=== PATIENT | male | born 1980 | race Caucasian/White ===

== ENCOUNTER 2020-03-15 15:53 | Inpatient (IN) | payer OTHER ==
[~2020-03-15] VITALS: Ht 165.1 cm; Wt 143.1 kg
[2020-03-15 16:29] LABS: BASOPHILS % (AUTO) 0.3 % (0.0-5.0); EOSINOPHILS % (AUTO) 0.8 % (0.0-8.0); HEMATOCRIT 40.3 % (42-54); LYMPHOCYTES % (AUTO) 13.5 % (21.0-51.0); MEAN CORPUSCULAR VOLUME 86.3 fL (79-99); NEUTROPHILS % (AUTO) 79.9 % (40.0-77.0); PLATELET COUNT (AUTO) 235 K/uL (130-400); RED BLOOD CELL COUNT(AUTO) 4.67 MIL/uL (4.50-6.20); RED CELL DISTRIBUTION WIDTH 12.9 % (11.0-15.5); WHITE BLOOD COUNT (AUTO) 11.9 K/uL (4.8-10.8)
[2020-03-15] MEDS ORDERED: ONDANSETRON HCL 4 MG/2 ML VIAL ONE ×2 (16:33→21:46)
[2020-03-15] MEDS ORDERED: MORPHINE SULFATE 4 MG/1ML SYG ONE ×2 (16:33→21:46)
[2020-03-15 16:51] LABS: MEAN CORPUSCULAR HEMOGLOBIN 30.8 pg (27.0-33.0); MEAN CORPUSCULAR HGB CONC 35.7 g/dL (32.0-36.0)
[2020-03-15 16:58] LABS: POTASSIUM 4.6 mmol/L (3.5-5.1)
[2020-03-15] MEDS ORDERED: MORPHINE SULFATE 2 MG/ML 1ML SYG ONE (17:28)
[2020-03-15] MEDS ORDERED: INSULIN HUMULIN R 100 UNIT/ML 3ML ONE ×2 (17:32→18:39)
[2020-03-15] MEDS ORDERED: SODIUM CHLORIDE 0.9% 1000ML 1,000 ML IV ONE (17:33)
[2020-03-15 17:37] LABS: APPEARANCE,URINE Clear (CLEAR); BILIRUBIN,URINE Negative (NEGATIVE); COLOR,URINE Yellow (YELLOW); GLUCOSE, URINE (UA) >=1000 mg/dL (NEGATIVE); KETONES,URINE 15 mg/dL (NEGATIVE); LEUKOCYTE ESTERASE ,URINE Negative (NEGATIVE); NITRATE,URINE Negative (NEGATIVE); OCCULT BLOOD,URINE Negative (NEGATIVE); PROTEIN,URINE 300 mg/dL (NEGATIVE)
[2020-03-15 17:48] LABS: RBC,URINE 0-1 /HPF (0-1); WBC,URINE 0-1 /HPF (0-1)
[2020-03-15 17:49] LABS: BACTERIA,URINE Rare /HPF (None Seen); MUCUS,URINE Rare LPF (None Seen); SQUAMOUS EPITHELIAL CELL,UR Rare /HPF (0-2)
[2020-03-15 18:05] LABS: ALBUMIN 3.8 g/dL (3.5-5.0); BILIRUBIN,TOTAL 0.2 mg/dL (0.2-1.0); TOTAL PROTEIN, SERUM 6.4 g/dL (6.0-8.3)
[2020-03-15] MEDS ORDERED: HYDROMORPHONE 1 MG/1 ML AMP ONE (18:27)
[2020-03-15] MEDS ORDERED: SODIUM CHLORIDE 0.9% 100 ML IV ONE (18:37)
[2020-03-15] MEDS ORDERED: SODIUM CHLORIDE 0.9% 1000ML 1,000 ML IV SCH (19:06)
[2020-03-15] MEDS ORDERED: MAG HYDROX/AL HYDROX/SIMETH 30 ML, LIDOCAINE HCL 2% VISCOUS 30 ML, DIPHENHYDRAMINE HCL ... PO PRN ×3 (19:15)
[2020-03-15] MEDS ORDERED: LACTULOSE 20 GM/30 ML UDCUP PO PRN (19:15)
[2020-03-15] MEDS ORDERED: HYDRALAZINE HCL 20 MG/ML VIAL IV PRN (19:15)
[2020-03-15] MEDS ORDERED: MORPHINE SULFATE 2 MG/ML 1ML SYG IV PRN (19:15)
[2020-03-15] MEDS ORDERED: MORPHINE SULFATE 4 MG/1ML SYG IV PRN (19:15)
[2020-03-15] MEDS ORDERED: GUAIFENESIN-DM 200/20 MG 10 ML PO PRN (19:15)
[2020-03-15] MEDS ORDERED: ACETAMINOPHEN 325 MG TAB PO PRN ×2 (19:15)
[2020-03-15] MEDS ORDERED: DIPHENHYDRAMINE HCL 25 MG CAPSULE PO PRN (19:15)
[2020-03-15] MEDS ORDERED: DiphenhydrAMINE HCL 50 MG/ML VIAL IV PRN (19:15)
[2020-03-15] MEDS ORDERED: ZOLPIDEM TARTRATE 5 MG TAB PO PRN (19:15)
[2020-03-15] MEDS ORDERED: LIDOCAINE HCL 2% VISCOUS 30 ML, MAG HYDROX/AL HYDROX/SIMETH 30 ML, BELLADONNA-PHENOBARB... PO PRN ×3 (19:15)
[2020-03-15] MEDS ORDERED: NITROGLYCERIN 0.4 MG SL TAB SL PRN (19:15)
[2020-03-15] MEDS ORDERED: MAG HYDROX/AL HYDROX/SIMETH ES 30 ML SUSP UDCUP PO PRN (19:15)
[2020-03-15] MEDS ORDERED: BENZONATATE 100 MG CAPSULE PO PRN (19:15)
[2020-03-15] MEDS ORDERED: INSULIN REGULAR, HUMAN 3ML 100 UNIT in SODIUM CHLORIDE 0.9% 99 ML IV PRN ×2 (19:45)
[2020-03-15] MEDS: DEXTROSE 5 %-0.45 % NACL 1,000 ML IV SCH (20:45)
[2020-03-15] MEDS: ATORVASTATIN CALCIUM 40 MG TABLET PO SCH (21:00)
[2020-03-15] MEDS: FAMOTIDINE/PF 20 MG/2 ML VIAL IV SCH (21:00)
[2020-03-15] MEDS ORDERED: FAMOTIDINE/PF 20 MG/2 ML VIAL IV SCH (21:00)
[2020-03-15] MEDS: FENOFIBRATE NANOCRYSTALLIZED 48 MG TAB PO SCH (21:00)
[2020-03-15] MEDS ORDERED: FAMOTIDINE/PF 20 MG/2 ML VIAL IV ONE (23:07)
[2020-03-16] VITALS (13 sets, daily range): BP systolic 125–160; BP diastolic 82–93
[2020-03-16] MEDS: DEXTROSE 5 %-0.45 % NACL 1,000 ML IV SCH ×4 (01:45→22:00)
[2020-03-16] MEDS ORDERED: MORPHINE SULFATE 4 MG/1ML SYG ONE ×2 (01:52→05:52)
[2020-03-16] MEDS ORDERED: ONDANSETRON HCL 4 MG/2 ML VIAL ONE (05:06)
[2020-03-16 05:15] LABS: BASOPHILS % (AUTO) 0.2 % (0.0-5.0); HEMATOCRIT 38.5 % (42-54); LYMPHOCYTES % (AUTO) 7.5 % (21.0-51.0); MEAN CORPUSCULAR HEMOGLOBIN 32.4 pg (27.0-33.0); MEAN CORPUSCULAR HGB CONC 37.7 g/dL (32.0-36.0); MEAN CORPUSCULAR VOLUME 86.1 fL (79-99); MONOCYTES % (AUTO) 4.2 % (3.0-13.0); NEUTROPHILS % (AUTO) 87.5 % (40.0-77.0); PLATELET COUNT (AUTO) 264 K/uL (130-400); RED BLOOD CELL COUNT(AUTO) 4.47 MIL/uL (4.50-6.20); RED CELL DISTRIBUTION WIDTH 13.7 % (11.0-15.5); WHITE BLOOD COUNT (AUTO) 10.3 K/uL (4.8-10.8)
[2020-03-16 05:39] LABS: BILIRUBIN,TOTAL 0.7 mg/dL (0.2-1.0); CREATININE 0.7 mg/dL (0.5-1.5); MAGNESIUM 1.1 mg/dL (1.80-2.40); POTASSIUM 5.5 mmol/L (3.5-5.1)
[2020-03-16 06:23] LABS: TOTAL PROTEIN, SERUM 6.6 g/dL (6.0-8.3)
[2020-03-16] MEDS ORDERED: FAMOTIDINE/PF 20 MG/2 ML VIAL IV ONE (08:14)
[2020-03-16] MEDS ORDERED: ENOXAPARIN SODIUM 40 MG/0.4 ML SYRINGE SQ ONE (08:14)
[2020-03-16] MEDS: FAMOTIDINE/PF 20 MG/2 ML VIAL IV SCH ×2 (09:00→21:16)
[2020-03-16] MEDS: ENOXAPARIN SODIUM 40 MG/0.4 ML SYRINGE SQ SCH (09:00)
[2020-03-16] MEDS ORDERED: MAGNESIUM 2GM PREMIX 50ML 50 ML IV ONE ×2 (09:32→11:26)
[2020-03-16] MEDS ORDERED: MAGNESIUM 2GM PREMIX 50ML 50 ML IV SCH (10:07)
[2020-03-16] MEDS ORDERED: SODIUM CHLORIDE 0.9% 100 ML IV ONE (10:53)
[2020-03-16] MEDS ORDERED: INSULIN HUMULIN R 100 UNIT/ML 3ML ONE (10:56)
[2020-03-16] MEDS ORDERED: DEXTROSE 5 %-0.45 % NACL 1,000 ML IV ONE (12:14)
[2020-03-16] MEDS: HYDROMORPHONE HCL 0.5 MG/0.5 ML ML IVP PRN ×3 (12:44→23:00)
[2020-03-16] MEDS: ONDANSETRON HCL 4 MG/2 ML VIAL IV PRN ×2 (12:44→18:44)
[2020-03-16 13:43] LABS: CREATININE 0.9 mg/dL (0.5-1.5); MAGNESIUM 2.3 mg/dL (1.80-2.40); POTASSIUM 3.5 mmol/L (3.5-5.1)
[2020-03-16] MEDS ORDERED: POTASSIUM CHLORIDE 20MEQ/100ML 100 ML IV PRN (14:30)
[2020-03-16] MEDS ORDERED: LACTATED RINGERS 1000ML 1,000 ML IV ONE (15:00)
[2020-03-16] MEDS: LACTATED RINGERS 1000ML 1,000 ML IV SCH ×2 (15:00→21:23)
[2020-03-16 20:34] LABS: CREATININE 0.9 mg/dL (0.5-1.5); POTASSIUM 3.6 mmol/L (3.5-5.1)
[2020-03-16] MEDS: ATORVASTATIN CALCIUM 40 MG TABLET PO SCH (21:16)
[2020-03-16] MEDS: FENOFIBRATE NANOCRYSTALLIZED 48 MG TAB PO SCH (21:16)
[2020-03-16] MEDS: LIDOCAINE HCL-MPF 1% 2ML VIAL IJ PRN ×2 (23:01→23:39)
[2020-03-17] VITALS (22 sets, daily range): BP systolic 105–163; BP diastolic 68–94
[2020-03-17] MEDS: LACTATED RINGERS 1000ML 1,000 ML IV SCH ×3 (04:09→12:02)
[2020-03-17 06:40] LABS: BASOPHILS % (AUTO) 0.2 % (0.0-5.0); EOSINOPHILS % (AUTO) 1.4 % (0.0-8.0); LYMPHOCYTES % (AUTO) 10.7 % (21.0-51.0); MEAN CORPUSCULAR HEMOGLOBIN 30.1 pg (27.0-33.0); MEAN CORPUSCULAR HGB CONC 34.5 g/dL (32.0-36.0); MEAN CORPUSCULAR VOLUME 87.4 fL (79-99); MONOCYTES % (AUTO) 4.5 % (3.0-13.0); NEUTROPHILS % (AUTO) 82.8 % (40.0-77.0); PLATELET COUNT (AUTO) 183 K/uL (130-400); RED BLOOD CELL COUNT(AUTO) 4.35 MIL/uL (4.50-6.20); RED CELL DISTRIBUTION WIDTH 13.6 % (11.0-15.5); WHITE BLOOD COUNT (AUTO) 8.1 K/uL (4.8-10.8)
[2020-03-17 07:01] LABS: ALBUMIN 2.6 g/dL (3.5-5.0); BILIRUBIN,TOTAL 0.6 mg/dL (0.2-1.0); CREATININE 0.9 mg/dL (0.5-1.5); POTASSIUM 3.6 mmol/L (3.5-5.1); TOTAL PROTEIN, SERUM 6.9 g/dL (6.0-8.3)
[2020-03-17] MEDS: DEXTROSE 5 %-0.45 % NACL 1,000 ML IV SCH ×2 (08:12→17:26)
[2020-03-17] MEDS: ENOXAPARIN SODIUM 40 MG/0.4 ML SYRINGE SQ SCH (08:57)
[2020-03-17] MEDS: FAMOTIDINE/PF 20 MG/2 ML VIAL IV SCH ×2 (08:57→20:08)
[2020-03-17] MEDS: FISH OIL 1000 MG/CAP PO SCH ×3 (10:32→20:07)
[2020-03-17 18:40] LABS: POTASSIUM 3.6 mmol/L (3.5-5.1)
[2020-03-17] MEDS: ATORVASTATIN CALCIUM 40 MG TABLET PO SCH (20:07)
[2020-03-17] MEDS: FENOFIBRATE NANOCRYSTALLIZED 48 MG TAB PO SCH (20:37)
[2020-03-18] VITALS (10 sets, daily range): BP systolic 120–160; BP diastolic 65–93
[2020-03-18] MEDS: LACTATED RINGERS 1000ML 1,000 ML IV SCH (00:20)
[2020-03-18] MEDS: DEXTROSE 5 %-0.45 % NACL 1,000 ML IV SCH (00:21)
[2020-03-18] MEDS ORDERED: KETOROLAC TROMETHAMINE 15MG/ML ONE (01:36)
[2020-03-18] MEDS: KETOROLAC TROMETHAMINE 15MG/ML IV SCH ×2 (01:46→13:05)
[2020-03-18 04:40] LABS: BASOPHILS % (AUTO) 0.3 % (0.0-5.0); EOSINOPHILS % (AUTO) 2.9 % (0.0-8.0); HEMATOCRIT 35.9 % (42-54); MEAN CORPUSCULAR HEMOGLOBIN 29.8 pg (27.0-33.0); MEAN CORPUSCULAR HGB CONC 33.7 g/dL (32.0-36.0); MEAN CORPUSCULAR VOLUME 88.4 fL (79-99); MONOCYTES % (AUTO) 3.9 % (3.0-13.0); NEUTROPHILS % (AUTO) 76.6 % (40.0-77.0); PLATELET COUNT (AUTO) 186 K/uL (130-400); RED BLOOD CELL COUNT(AUTO) 4.06 MIL/uL (4.50-6.20); RED CELL DISTRIBUTION WIDTH 13.4 % (11.0-15.5); WHITE BLOOD COUNT (AUTO) 7.6 K/uL (4.8-10.8)
[2020-03-18 04:54] LABS: ALBUMIN 2.4 g/dL (3.5-5.0); BILIRUBIN,TOTAL 0.5 mg/dL (0.2-1.0); CREATININE 0.8 mg/dL (0.5-1.5); MAGNESIUM 2.6 mg/dL (1.80-2.40); PHOSPHORUS 1.7 mg/dL (2.5-4.9); POTASSIUM 3.4 mmol/L (3.5-5.1); TOTAL PROTEIN, SERUM 6.8 g/dL (6.0-8.3)
--- NOTE | 2020-03-18 08:32 | NUR ---
Notified warehouse hand of downgrade transfer to med/surg status; report called to Tanisha @ 0815, wheeled patient myself to room 314, vss. belongings w/patient, cbg 193 md/dl; new orders noted & voiced to Tanisha to administer.
[2020-03-18] MEDS: FISH OIL 1000 MG/CAP PO SCH ×3 (09:10→20:21)
[2020-03-18] MEDS: POTASSIUM CHLORIDE 20 MEQ ERTAB PO SCH (09:11)
[2020-03-18] MEDS: FAMOTIDINE/PF 20 MG/2 ML VIAL IV SCH ×2 (09:11→20:21)
[2020-03-18] MEDS: ENOXAPARIN SODIUM 40 MG/0.4 ML SYRINGE SQ SCH (09:12)
[2020-03-18] MEDS: INSULIN HUMULIN R 100 UNIT/ML 3ML SQ SCH ×8 (09:23→21:00)
--- NOTE | 2020-03-18 10:04 | NUR ---
DC PLAN PATIENT LIVES WITH SPOUSE. INDEPENDENT ABLE TO PERFORM ADL'S. PATIENT HAS NO SERVICES OR DME. FEELS SAFE TO RETURN HOME. Addendum: 03/18/20 at 1007 by APRIL JESSICA RN CM Amended: Links added.
[2020-03-18] MEDS ORDERED: POLYETHYLENE GLYCOL 3350 17 GM POWD.PACK ONE (12:51)
[2020-03-18] MEDS: INSULIN GLARGINE 100 UNITS/ML 10 ML VIAL SQ SCH (13:14)
[2020-03-18] MEDS: ATORVASTATIN CALCIUM 40 MG TABLET PO SCH (20:21)
[2020-03-18] MEDS: KETOROLAC TROMETHAMINE 15MG/ML IV PRN (20:22)
[2020-03-18] MEDS: FENOFIBRATE NANOCRYSTALLIZED 48 MG TAB PO SCH (20:22)
[2020-03-18] MEDS ORDERED: INSULIN GLARGINE 100 UNITS/ML 10 ML VIAL SQ SCH (21:00)
[2020-03-19] VITALS: BP 130/64
[2020-03-19] MEDS: KETOROLAC TROMETHAMINE 15MG/ML IV PRN ×3 (02:33→21:41)
[2020-03-19 04:00] VITALS: BP 148/78
[2020-03-19] MEDS: INSULIN HUMULIN R 100 UNIT/ML 3ML SQ SCH ×7 (05:54→22:27)
[2020-03-19] MEDS: POTASSIUM CHLORIDE 20 MEQ ERTAB PO SCH (06:56)
[2020-03-19 07:30] VITALS: BP 144/63
[2020-03-19] MEDS: FAMOTIDINE/PF 20 MG/2 ML VIAL IV SCH (08:47)
[2020-03-19] MEDS: FISH OIL 1000 MG/CAP PO SCH ×3 (08:47→21:00)
[2020-03-19] MEDS: POLYETHYLENE GLYCOL 3350 17 GM POWD.PACK PO SCH (08:48)
[2020-03-19] MEDS: ENOXAPARIN SODIUM 40 MG/0.4 ML SYRINGE SQ SCH (08:51)
[2020-03-19] MEDS ORDERED: INSULIN GLARGINE 100 UNITS/ML 10 ML VIAL SQ SCH (09:00)
[2020-03-19 09:44] LABS: ALBUMIN 2.6 g/dL (3.5-5.0); BILIRUBIN,TOTAL 0.6 mg/dL (0.2-1.0); CREATININE 0.9 mg/dL (0.5-1.5); TOTAL PROTEIN, SERUM 7.3 g/dL (6.0-8.3)
[2020-03-19 12:00] VITALS: BP 136/87
[2020-03-19] MEDS: INSULIN GLARGINE 100 UNITS/ML 10 ML VIAL SQ SCH (12:27)
[2020-03-19] MEDS ORDERED: TRAMADOL HCL 50 MG TABLET PO ONE (14:45)
[2020-03-19] MEDS ORDERED: LISINOPRIL 10 MG TABLET PO SCH (14:45)
[2020-03-19] MEDS ORDERED: PANTOPRAZOLE SODIUM 40 MG TABLET.DR PO SCH (14:45)
[2020-03-19] MEDS: TRAMADOL HCL 50 MG TABLET PO SCH ×2 (14:45→20:45)
[2020-03-19 16:00] VITALS: BP 152/75
[2020-03-19 20:24] VITALS: BP 166/79
[2020-03-19] MEDS: ATORVASTATIN CALCIUM 40 MG TABLET PO SCH (21:00)
[2020-03-19] MEDS: DOCUSATE SODIUM 100 MG CAP PO SCH (21:00)
[2020-03-19] MEDS: FENOFIBRATE NANOCRYSTALLIZED 48 MG TAB PO SCH (21:00)
[2020-03-19] MEDS ORDERED: MORPHINE SULFATE 2 MG/ML 1ML SYG ONE (22:00)
[2020-03-19] MEDS ORDERED: MORPHINE SULFATE 2 MG/ML 1ML SYG IVP ONE (22:00)
[2020-03-20] VITALS (7 sets, daily range): BP systolic 130–165; BP diastolic 61–86
[2020-03-20] MEDS: TRAMADOL HCL 50 MG TABLET PO SCH ×4 (02:45→21:04)
[2020-03-20] MEDS: KETOROLAC TROMETHAMINE 15MG/ML IV PRN (03:46)
[2020-03-20 04:13] LABS: BASOPHILS % (AUTO) 0.1 % (0.0-5.0); EOSINOPHILS % (AUTO) 2.3 % (0.0-8.0); LYMPHOCYTES % (AUTO) 10.8 % (21.0-51.0); MEAN CORPUSCULAR HEMOGLOBIN 29.2 pg (27.0-33.0); MEAN CORPUSCULAR HGB CONC 32.9 g/dL (32.0-36.0); MEAN CORPUSCULAR VOLUME 88.8 fL (79-99); MONOCYTES % (AUTO) 7.2 % (3.0-13.0); NEUTROPHILS % (AUTO) 79.3 % (40.0-77.0); PLATELET COUNT (AUTO) 162 K/uL (130-400); RED BLOOD CELL COUNT(AUTO) 3.83 MIL/uL (4.50-6.20); RED CELL DISTRIBUTION WIDTH 13.3 % (11.0-15.5); WHITE BLOOD COUNT (AUTO) 7.2 K/uL (4.8-10.8)
[2020-03-20 04:36] LABS: ALBUMIN 2.5 g/dL (3.5-5.0); BILIRUBIN,TOTAL 0.8 mg/dL (0.2-1.0); POTASSIUM 3.6 mmol/L (3.5-5.1)
[2020-03-20] MEDS: INSULIN HUMULIN R 100 UNIT/ML 3ML SQ SCH ×7 (06:02→21:00)
--- NOTE | 2020-03-20 06:04 | NUR ---
nursing note PT REPORTS THAT ABD PAIN HAS REMAINED THROUGHOUT THE NIGHT, PROXIMAL TO UMBILICUS. PT REPORTS THE AREA IS TENDER TO TOUCH. PT STATES THAT HE WAS ABLE TO HAVE X3 BM AND ABLE TO PASS GAS WHICH HELPED WITH THE ABD DISTENSION. PT CONCERNED WITH PERSISTENT ABD PAIN. PAIN COVERED THROUGH OUT THE NIGHT WITH IV PAIN MED PER AUG. PT AMBULATED AROUND UNIT TO ATTEMPT TO ALLEVIATE THE PAIN WELL. NO OTHER EVENTS OCCURED DURING THIS SHIFT.
[2020-03-20] MEDS: POTASSIUM CHLORIDE 20 MEQ ERTAB PO SCH (08:00)
[2020-03-20] MEDS: FISH OIL 1000 MG/CAP PO SCH ×3 (08:46→21:03)
[2020-03-20] MEDS: DOCUSATE SODIUM 100 MG CAP PO SCH ×2 (08:46→21:03)
[2020-03-20] MEDS: PANTOPRAZOLE SODIUM 40 MG TABLET.DR PO SCH (08:47)
[2020-03-20] MEDS: POLYETHYLENE GLYCOL 3350 17 GM POWD.PACK PO SCH (08:47)
[2020-03-20] MEDS: ENOXAPARIN SODIUM 40 MG/0.4 ML SYRINGE SQ SCH (08:53)
[2020-03-20] MEDS ORDERED: INSULIN GLARGINE 100 UNITS/ML 10 ML VIAL SQ SCH (09:00)
[2020-03-20] MEDS: SIMETHICONE 80 MG TAB.CHEW PO SCH ×2 (17:29→21:05)
[2020-03-20] MEDS: ATORVASTATIN CALCIUM 40 MG TABLET PO SCH (21:03)
[2020-03-20] MEDS: FENOFIBRATE NANOCRYSTALLIZED 145 MG TAB PO SCH (21:06)
[2020-03-21 03:42] VITALS: BP 152/73
[2020-03-21] MEDS: TRAMADOL HCL 50 MG TABLET PO SCH ×4 (04:33→21:07)
[2020-03-21 05:58] LABS: BASOPHILS % (AUTO) 0.3 % (0.0-5.0); EOSINOPHILS % (AUTO) 2.3 % (0.0-8.0); HEMATOCRIT 33.3 % (42-54); MEAN CORPUSCULAR HEMOGLOBIN 29.1 pg (27.0-33.0); MEAN CORPUSCULAR HGB CONC 32.7 g/dL (32.0-36.0); MEAN CORPUSCULAR VOLUME 88.8 fL (79-99); MONOCYTES % (AUTO) 8.2 % (3.0-13.0); NEUTROPHILS % (AUTO) 75.4 % (40.0-77.0); PLATELET COUNT (AUTO) 166 K/uL (130-400); RED BLOOD CELL COUNT(AUTO) 3.75 MIL/uL (4.50-6.20); RED CELL DISTRIBUTION WIDTH 13.2 % (11.0-15.5); WHITE BLOOD COUNT (AUTO) 7.7 K/uL (4.8-10.8)
[2020-03-21 06:13] LABS: ALBUMIN 2.4 g/dL (3.5-5.0); BILIRUBIN,TOTAL 0.6 mg/dL (0.2-1.0); CREATININE 0.8 mg/dL (0.5-1.5); POTASSIUM 3.5 mmol/L (3.5-5.1); TOTAL PROTEIN, SERUM 6.8 g/dL (6.0-8.3)
[2020-03-21] MEDS: INSULIN HUMULIN R 100 UNIT/ML 3ML SQ SCH ×7 (07:16→21:00)
[2020-03-21 07:46] VITALS: BP 139/61
[2020-03-21] MEDS: POTASSIUM CHLORIDE 20 MEQ ERTAB PO SCH (08:00)
[2020-03-21] MEDS: SIMETHICONE 80 MG TAB.CHEW PO SCH ×3 (08:08→17:22)
[2020-03-21] MEDS: FISH OIL 1000 MG/CAP PO SCH ×3 (08:08→21:06)
[2020-03-21] MEDS: PANTOPRAZOLE SODIUM 40 MG TABLET.DR PO SCH (08:08)
[2020-03-21] MEDS: DOCUSATE SODIUM 100 MG CAP PO SCH ×2 (08:08→21:06)
[2020-03-21] MEDS: ENOXAPARIN SODIUM 40 MG/0.4 ML SYRINGE SQ SCH (08:11)
[2020-03-21] MEDS: POLYETHYLENE GLYCOL 3350 17 GM POWD.PACK PO SCH (08:11)
[2020-03-21] MEDS ORDERED: INSULIN GLARGINE 100 UNITS/ML 10 ML VIAL SQ SCH ×2 (09:00)
[2020-03-21 12:00] VITALS: BP 140/72
[2020-03-21 16:00] VITALS: BP 136/76
[2020-03-21] MEDS ORDERED: ATOR40TA69 PO (17:11)
[2020-03-21] MEDS ORDERED: DOCU-275 PO (17:11)
[2020-03-21] MEDS ORDERED: FENO145T PO (17:11)
[2020-03-21] MEDS ORDERED: FISH1CAP20 PO (17:11)
[2020-03-21] MEDS ORDERED: INSU100V3 SQ (17:11)
[2020-03-21] MEDS ORDERED: INSLAN SQ (17:11)
[2020-03-21 20:18] VITALS: BP 161/87
[2020-03-21] MEDS: ATORVASTATIN CALCIUM 40 MG TABLET PO SCH (21:06)
[2020-03-21] MEDS: FENOFIBRATE NANOCRYSTALLIZED 145 MG TAB PO SCH (21:06)
[2020-03-21] MEDS: SIMETHICONE 80 MG TAB.CHEW PO PRN (21:08)
[2020-03-21 23:41] VITALS: BP 160/78
[2020-03-22] MEDS: TRAMADOL HCL 50 MG TABLET PO SCH ×3 (02:45→14:35)
[2020-03-22 03:48] VITALS: BP 162/91
[2020-03-22 04:56] LABS: BASOPHILS % (AUTO) 0.3 % (0.0-5.0); EOSINOPHILS % (AUTO) 2.3 % (0.0-8.0); HEMATOCRIT 33.3 % (42-54); LYMPHOCYTES % (AUTO) 18.9 % (21.0-51.0); MEAN CORPUSCULAR HEMOGLOBIN 29.2 pg (27.0-33.0); MEAN CORPUSCULAR HGB CONC 32.7 g/dL (32.0-36.0); MEAN CORPUSCULAR VOLUME 89.3 fL (79-99); MONOCYTES % (AUTO) 9.5 % (3.0-13.0); NEUTROPHILS % (AUTO) 66.7 % (40.0-77.0); PLATELET COUNT (AUTO) 166 K/uL (130-400); RED BLOOD CELL COUNT(AUTO) 3.73 MIL/uL (4.50-6.20); RED CELL DISTRIBUTION WIDTH 13.2 % (11.0-15.5); WHITE BLOOD COUNT (AUTO) 7.6 K/uL (4.8-10.8)
[2020-03-22 05:11] LABS: ALBUMIN 2.5 g/dL (3.5-5.0); BILIRUBIN,TOTAL 0.4 mg/dL (0.2-1.0); CREATININE 0.9 mg/dL (0.5-1.5); POTASSIUM 3.6 mmol/L (3.5-5.1); TOTAL PROTEIN, SERUM 7.2 g/dL (6.0-8.3)
[2020-03-22] MEDS: INSULIN HUMULIN R 100 UNIT/ML 3ML SQ SCH ×2 (06:03→11:30)
[2020-03-22 08:00] VITALS: BP 165/55
[2020-03-22] MEDS: POTASSIUM CHLORIDE 20 MEQ ERTAB PO SCH (08:00)
[2020-03-22] MEDS: POLYETHYLENE GLYCOL 3350 17 GM POWD.PACK PO SCH (09:00)
[2020-03-22] MEDS: DOCUSATE SODIUM 100 MG CAP PO SCH (09:00)
[2020-03-22] MEDS ORDERED: INSULIN GLARGINE 100 UNITS/ML 10 ML VIAL SQ SCH (09:00)
[2020-03-22] MEDS: PANTOPRAZOLE SODIUM 40 MG TABLET.DR PO SCH (09:48)
[2020-03-22] MEDS: FISH OIL 1000 MG/CAP PO SCH ×2 (09:48→14:10)
[2020-03-22] MEDS: ENOXAPARIN SODIUM 40 MG/0.4 ML SYRINGE SQ SCH (09:49)
[2020-03-22] MEDS: SIMETHICONE 80 MG TAB.CHEW PO PRN (10:09)
[2020-03-22] MEDS ORDERED: INSULIN HUMULIN R 100 UNIT/ML 3ML SQ SCH (11:30)
[2020-03-22 11:57] VITALS: BP 149/70
[2020-03-22] MEDS ORDERED: LISI10TA7 PO (15:37)
== END 2020-03-22 16:10 | disposition home or self-care (01) | DRG 438 ==
LOC: EDH 15:53 → EDHIP 19:06 → DAHIP 03-16 12:21 → 3CH 03-18 07:59
PROVIDERS: ADMIT Internal Medicine; ATTEND Internal Medicine
DX: K85.80 Other acute pancreatitis without necrosis or infection (principal); E11.00 Type 2 diabetes mellitus with hyperosmolarity without nonketotic hyperglycemic-hyperosmolar coma (NKHHC); Z68.43 Body mass index [BMI] 50.0-59.9, adult; E78.00 Pure hypercholesterolemia, unspecified; I10 Essential (primary) hypertension; E78.1 Pure hyperglyceridemia; R16.2 Hepatomegaly with splenomegaly, not elsewhere classified; K76.0 Fatty (change of) liver, not elsewhere classified; E11.51 Type 2 diabetes mellitus with diabetic peripheral angiopathy without gangrene; E66.01 Morbid (severe) obesity due to excess calories; E78.5 Hyperlipidemia, unspecified; E86.1 Hypovolemia; Z79.4 Long term (current) use of insulin; Z79.899 Other long term (current) drug therapy; Z87.442 Personal history of urinary calculi; Z89.512 Acquired absence of left leg below knee; Z91.11 Patient's noncompliance with dietary regimen
CPT/HCPCS: 36415; 74176; 76705; 80048; 80053; 81001; 82550; 82948; 83036; 83690; 83735; 84100; 84478; 84484; 85025; 93005; 99291; G0378; J1170; J1650; J1815; J1885; J2270; J2405; J3475; J3480; J3490; J7030; J7042; J7120

== ENCOUNTER → 2020-08-26 | Outpatient (CLI) | payer OTHER ==
[~2020-08-26] MED LIST: ATOR40TA69 PO; DOCU-275 PO; FENO145T PO; FISH1CAP20 PO; INSLAN SQ; INSU100V3 SQ; LISI10TA24 PO
[2020-08-26 10:15] LABS: CHOLESTEROL 127 mg/dL (<200); HDL CHOLESTEROL 45 mg/dL (29-71); LDL DIRECT 70 mg/dL (0-99); TRIGLYCERIDES 113 mg/dL (30-200)
== END | disposition home or self-care (01) ==
LOC: RAH 08:56
PROVIDERS: ATTEND Internal Medicine
DX: E78.5 Hyperlipidemia, unspecified (principal); E11.65 Type 2 diabetes mellitus with hyperglycemia
CPT/HCPCS: 36415; 80061; 82043

== ENCOUNTER → 2021-08-02 | Outpatient (CLI) | payer OTHER ==
[~2021-08-02] MED LIST changes: +DOCU-270 PO; -DOCU-275 PO
[2021-08-02 11:35] LABS: BASOPHILS % (AUTO) 0.3 % (0.0-5.0); EOSINOPHILS % (AUTO) 2.1 % (0.0-8.0); HEMATOCRIT 39.7 % (42-54); LYMPHOCYTES % (AUTO) 26.2 % (21.0-51.0); MEAN CORPUSCULAR HGB CONC 33.8 g/dL (32.0-36.0); MONOCYTES % (AUTO) 7.9 % (3.0-13.0); NEUTROPHILS % (AUTO) 63.2 % (40.0-77.0); PLATELET COUNT (AUTO) 188 K/uL (130-400); RED BLOOD CELL COUNT(AUTO) 4.46 MIL/uL (4.50-6.20); RED CELL DISTRIBUTION WIDTH 13.9 % (11.0-15.5); WHITE BLOOD COUNT (AUTO) 7.6 K/uL (4.8-10.8)
[2021-08-02 11:53] LABS: HEMOGLOBIN A1C 8.4 % (4.0-6.0)
[2021-08-02 11:58] LABS: ALBUMIN 4.4 g/dL (3.5-5.0); BILIRUBIN,TOTAL 0.6 mg/dL (0.2-1.0); CREATININE 0.9 mg/dL (0.5-1.5); POTASSIUM 4.2 mmol/L (3.5-5.1); THYROID STIMULATING HORMONE 2.33 uIU/mL (0.36-3.74); TOTAL PROTEIN, SERUM 8.4 g/dL (6.0-8.3)
== END | disposition home or self-care (01) ==
LOC: LAB 10:55
PROVIDERS: ATTEND Family Medicine
DX: E11.9 Type 2 diabetes mellitus without complications (principal); E78.2 Mixed hyperlipidemia; E66.01 Morbid (severe) obesity due to excess calories; I10 Essential (primary) hypertension; R06.02 Shortness of breath
CPT/HCPCS: 36415; 71046; 80053; 80061; 83036; 84443; 85025

== ENCOUNTER → 2022-01-21 | Outpatient (CLI) | payer OTHER | END | disposition home or self-care (01) | LOC: SLP 20:39 | PROVIDERS: ATTEND Internal Medicine Critical Care Medicine | DX: G47.33 Obstructive sleep apnea (adult) (pediatric) (principal); G47.19 Other hypersomnia | CPT/HCPCS: 95811 ==

== ENCOUNTER → 2022-04-15 | Outpatient (CLI) | payer OTHER ==
[2022-04-15 10:02] LABS: ALBUMIN 3.6 g/dL (3.5-5.0); POTASSIUM 4.7 mmol/L (3.5-5.1)
[2022-04-15 11:16] LABS: CREATININE 1.2 mg/dL (0.5-1.5); TOTAL PROTEIN, SERUM 8.1 g/dL (6.0-8.3)
== END | disposition home or self-care (01) ==
LOC: LAB 08:47
PROVIDERS: ATTEND Internal Medicine
DX: E11.65 Type 2 diabetes mellitus with hyperglycemia (principal)
CPT/HCPCS: 36415; 80053; 80061; 82043

== ENCOUNTER 2023-11-06 04:28 | Emergency (ER) | payer OTHER ==
[~2023-11-06] VITALS: Ht 165.1 cm; Wt 150.1 kg
[2023-11-06] MEDS: SOLU-MEDROL 125MG VIAL IVP ONE (04:49)
[2023-11-06] MEDS: SOLU-MEDROL 125MG VIAL ONE (04:49)
[2023-11-06 04:50] LABS: BASOPHILS # (AUTO) 0.01 K/uL (0.00-0.20); BASOPHILS % (AUTO) 0.1 % (0.0-5.0); EOSINOPHILS # (AUTO) 0.11 K/uL (0.00-0.70); EOSINOPHILS % (AUTO) 1.5 % (0.0-8.0); HEMATOCRIT 39.8 % (42-54); IMMATURE GRANULOCYTE ABSOLUTE 0.03 K/uL (0-1); LYMPHOCYTES % (AUTO) 13.4 % (21.0-51.0); MEAN CORPUSCULAR HEMOGLOBIN 31.2 pg (27.0-33.0); MEAN CORPUSCULAR HGB CONC 34.2 g/dL (32.0-36.0); MEAN CORPUSCULAR VOLUME 91.3 fL (79-99); MONOCYTES # (AUTO) 0.4 K/uL (0.1-1.0); NEUTROPHILS # (AUTO) 5.8 K/uL (1.8-7.7); NEUTROPHILS % (AUTO) 78.6 % (40.0-77.0); PLATELET COUNT (AUTO) 169 K/uL (130-400); RED BLOOD CELL COUNT(AUTO) 4.36 MIL/uL (4.50-6.20); RED CELL DISTRIBUTION WIDTH 13.1 % (11.0-15.5); WHITE BLOOD COUNT (AUTO) 7.3 K/uL (4.8-10.8)
[2023-11-06] MEDS: ONDANSETRON 4MG INJ IVP STA (04:53)
[2023-11-06] MEDS: ONDANSETRON 4MG INJ ONE (04:53)
[2023-11-06] MEDS: IPRATROPIUM/ALBUTEROL SULFATE 3 ML SOLUTION IH ONE ×2 (04:57→05:05)
[2023-11-06 04:58] VITALS: PULSE 115; RESP 22
[2023-11-06 04:59] LABS: RAPID GROUP A STREP negative (NEGATIVE)
[2023-11-06 05:04] LABS: ALBUMIN 3.9 g/dL (3.5-5.0); BILIRUBIN,TOTAL 0.5 mg/dL (0.2-1.0); CREATININE 1.6 mg/dL (0.5-1.3); POTASSIUM 4.3 mmol/L (3.5-5.1); TOTAL PROTEIN, SERUM 8.1 g/dL (6.0-8.3)
[2023-11-06 05:05] VITALS: PULSE 109; RESP 20
[2023-11-06 05:05] LABS: INFLUENZA TYPE A NEGATIVE FOR TYPE A (NEG); INFLUENZA TYPE B NEGATIVE FOR TYPE B (NEG)
[2023-11-06 05:08] LABS: SARS-CoV-2, RNA, NAAT POSITIVE SARS CoV-2 (NEGATIVE)
[2023-11-06 05:30] LABS: B-TYPE NATRIURETIC PEPTIDE < 5 pg/mL (0-100)
[2023-11-06] MEDS ORDERED: 0.9%NACL 1000ML 1,000 ML IV ONE (06:00)
[2023-11-06] MEDS: INSULIN HUMULIN R 100 UNIT/ML 3ML SQ ONE (07:32)
[2023-11-06] MEDS: LISINOPRIL 10 MG TABLET PO ONE (09:21)
[2023-11-06] MEDS ORDERED: ALBUHFA IH (09:27)
[2023-11-06] MEDS ORDERED: AZIT250T9 PO (09:27)
[2023-11-06 09:32] VITALS: BP 167/96; PULSE 105; RESP 16; O2SAT 98
== END 2023-11-06 10:10 | disposition home or self-care (01) ==
LOC: EDH 04:28
DX: U07.1 COVID-19 (principal); J45.901 Unspecified asthma with (acute) exacerbation; E11.9 Type 2 diabetes mellitus without complications; E78.00 Pure hypercholesterolemia, unspecified; I10 Essential (primary) hypertension; Z79.4 Long term (current) use of insulin; Z79.899 Other long term (current) drug therapy
CPT/HCPCS: 99285; 96374; 71045; 87635; 96375; 84484; 80053; 83880; 85025; 87880; 87804 ×2; 36415; 93005; 96372; 94640 ×2; J1815; J2919; J2405

== ENCOUNTER 2023-12-06 20:37 | Emergency (ER) | payer OTHER ==
[~2023-12-06] VITALS: Ht 165.1 cm; Wt 151.0 kg
[~2023-12-06 20:37] MED LIST changes: +ALBUHFA IH; +AZIT250T9 PO
[2023-12-06] MEDS: CEFTRIAXONE 1G VIAL IM ONE (21:32)
[2023-12-06] MEDS: LIDOCAINE HCL 1% 20 ML VIAL INJ STA (21:33)
[2023-12-06] MEDS: ACETAMINOPHEN 500 MG TABLET PO ONE (21:33)
[2023-12-06] MEDS: DIPH,PERTUSS(ACELL),TET VAC/PF 0.5 ML VIAL IM ONE (21:33)
[2023-12-06] MEDS ORDERED: OCTYL 2-CYANOACRYLATE 1 EACH TP ONE (22:49)
[2023-12-06] MEDS ORDERED: OCTYL 2-CYANOACRYLATE 1 EACH TP SCH (23:00)
[2023-12-06 23:07] VITALS: BP 133/75; PULSE 80; RESP 16; O2SAT 98
== END 2023-12-06 23:14 | disposition home or self-care (01) ==
LOC: EDH 20:37
DX: S61.216A Laceration without foreign body of right little finger without damage to nail, initial encounter (principal); I10 Essential (primary) hypertension; E11.9 Type 2 diabetes mellitus without complications; E78.00 Pure hypercholesterolemia, unspecified; J45.909 Unspecified asthma, uncomplicated; Z79.899 Other long term (current) drug therapy; Z98.890 Other specified postprocedural states; X58.XXXA Exposure to other specified factors, initial encounter; Y93.G1 Activity, food preparation and clean up; Y92.89 Other specified places as the place of occurrence of the external cause; Y99.8 Other external cause status
CPT/HCPCS: 99284; 90715; 90471; 12002; 96372; J0696